=== PATIENT | male | born 2000 | race Two or more races ===

== ENCOUNTER 2024-06-10 20:12 | Emergency (ER) | payer OTHER ==
[~2024-06-10] VITALS: Ht 188 cm; Wt 68.0 kg
[~2024-06-10 20:12] MED LIST: CELESTONE0.6 MG/5 M; PROVENTIL0.5 ML/2.5; TRISPEC PSE PED30 ML
[2024-06-10] MEDS ORDERED: ACETAMINOPHEN 500 MG GEL..CAP PO ONE ×2 (21:45→21:46)
[2024-06-10 22:31] LABS: HEMATOCRIT 41.3 % (39.0-48.0); HEMOGLOBIN 14.1 g/dL (13-16.00); MEAN CELL VOLUME 86.3 fL (80.0-100.00); MEAN CORPUSCULAR HEMOGLOBIN 29.4 pg (27.00-32.0); PLATELET COUNT 185 K/uL (150-450); RED BLOOD COUNT 4.79 M/uL (4.00-6.00); RED CELL DISTRIBUTION WIDTH 12.6 % (11.5-14.5)
== END 2024-06-10 22:54 | disposition home or self-care (01) ==
LOC: ER 20:14
PROVIDERS: General Practice
DX: J11.1 Influenza due to unidentified influenza virus with other respiratory manifestations (principal); Z20.822 Contact with and (suspected) exposure to COVID-19